=== PATIENT | male | born 1975 | race African-American/Black ===

== ENCOUNTER 2018-09-26 12:30 | Emergency (ER) | payer OTHER, BC ==
--- NOTE | 2018-09-26 13:15 | ER Document Report ---
HPI - HPI Patient complains to provider of: RIB PAIN Time Seen by Provider: 09/26/18 13:11 Onset: Other - Sunday Onset/Duration: Persistent Quality of pain: Achy Severity: Moderate Pain Level: 3 Context: This 42-year-old male presents emergency department with complaints of right rib pain since Sunday. He reports he sneezed and he felt a pop. Reports pain since that time hurts to take a deep breath hurts to cough hurts to lay on that side. Denies fever vomiting diarrhea. Denies difficulty breathing. Patient does have a history of asthma has not been using his inhaler anymore. Patient is speaking in clear voice no distress respiratory rate even unlabored Associated Symptoms: None Exacerbated by: Coughing, Deep breathing Relieved by: Denies Similar symptoms previously: No Recently seen / treated by doctor: No Past Medical History - General Information source: Patient - Social History Smoking Status: Current Every Day Smoker Cigarette use (# per day): No - VAPE, CIGARS Frequency of alcohol use: Occasional Drug Abuse: None Occupation: [employer] [place] [employer] Family History: Reviewed & Not Pertinent Patient has suicidal ideation: No Patient has homicidal ideation: No Pulmonary Medical History: Reports: Hx Asthma Past Surgical History: Reports: Hx Oral Surgery - WISDOM TEETH, Hx Tonsillectomy - Immunizations Hx Diphtheria, Pertussis, Tetanus Vaccination: No Vertical Provider Document - CONSTITUTIONAL Agree With Documented VS: Yes Exam Limitations: No Limitations General Appearance: WD/WN, No Apparent Distress - INFECTION CONTROL TRAVEL OUTSIDE OF THE [place] IN LAST 30 DAYS: No - HEENT HEENT: Atraumatic, Normocephalic - NECK Neck: Normal Inspection, Supple. negative: Lymphadenopathy-Left, Lymphadeno fidencio-Right - RESPIRATORY Respiratory: Breath Sounds Normal, No Respiratory Distress, Other - Right lateral rib area tender to palpate no erythema no swelling no warmth no ecchymosis - CARDIOVASCULAR Cardiovascular: Regular Rate, Regular Rhythm - GI/ABDOMEN Gastrointestinal: Abdomen Soft, Abdomen Non-Tender - MUSCULOSKELETAL/EXTREMETIES Musculoskeletal/Extremeties: KARENA MCBRIDE - NEURO Level of Consciousness: Awake, Alert, Appropriate - DERM Integumentary: Warm, Dry Adult Front & Back Diagram: 1 - Patient reports pain with cough deep breathing hurts to lay on the side. Course - Re-evaluation Re-evalutation: 09/26/18 13:14 42-year-old male that presents to the emergency department with complaints of right rib pain since he sneezed on Sunday. No obvious distress respiratory rate even unlabored. 09/26/18 14:08 Ribs w/Chest X-Ray 09/26/18 13:11 IMPRESSION: 1. No significant interval changes since the prior study dated 12/07/2013. No acute findings. 2. NO PNEUMOTHORAX. 3. NO acute DISPLACED RIB FRACTURES. Rib x-ray negative. Patient was instructed on this results. Instructed to cough deep breathe frequently take ibuprofen for the pain. He verbalized understanding to all instructions. - Vital Signs Vital signs: Temp Pulse Resp BP Pulse Ox 97.6 F 72 16 159/109 H 96 09/26/18 12:36 09/26/18 12:36 09/26/18 12:36 09/26/18 12:36 09/26/18 12:36 Discharge - Discharge Clinical Impression: Rib pain on right side Condition: Stable Disposition: HOME, SELF-CARE Instructions: Use of [id number] Ibuprofen ([facility]), Rib Injuries and Fractures ([facility]) Additional Instructions: *You have been evaluated for rib pain after sneezing Your x-rays were negative for an acute injury Take Motrin as needed for pain Cough and deep breathe frequently at least once an hour *Follow up with a primary care provider within one week *Return to ED for worsening condition, changes, needs, difficulty breathing, concerns Monitor your blood pressure. Your blood pressure was elevated today. This may be because you were anxious, in pain or because you need medication. It is important to follow up with your primary care provider for full evaluation. Forms: Elevated Blood Pressure, Return to Work Referrals: [facility] [Primary Care Provider] - Follow up in 1 week
--- NOTE | 2018-09-26 13:59 | RADIOLOGY REPORT (SQ) ---
EXAM DESCRIPTION: RIBS RIGHT W/PA CHEST COMPLETED DATE/TIME: 09/26/2018 1:24 pm REASON FOR STUDY: SNEEZED PAIN COMPARISON: 12/07/2013 TECHNIQUE: Frontal view of the chest and additional views of the right ribs acquired. NUMBER OF VIEWS: Four view. LIMITATIONS: None. FINDINGS: FRONTAL CXR: No pneumothorax. No pleural effusion. No atelectasis or infiltrates. RIBS: No acute displaced rib fractures. No lytic or blastic bony lesions. OTHER: No other significant finding. IMPRESSION: 1. No significant interval changes since the prior study dated 12/07/2013. No acute fi ndings. 2. NO PNEUMOTHORAX. 3. NO acute DISPLACED RIB FRACTURES. COMMENT: SITE OF TRAUMA/COMPLAINT MARKED/STAMP COMPLETED: NO. TECHNICAL DOCUMENTATION: JOB ID: [id number] [employer]- All Rights Reserved Reading location - IP/workstation name: [email or web address]
[2018-09-26 14:15] VITALS: BP 153/106
== END 2018-09-26 14:19 | disposition home or self-care (01) ==
LOC: ER 12:30
DX: R07.81 Pleurodynia (principal); R05 Cough; J45.909 Unspecified asthma, uncomplicated; F17.200 Nicotine dependence, unspecified, uncomplicated
CPT/HCPCS: 99283